=== PATIENT | male | born 1945 | race Native Hawaiian/Other Pacific Islander ===

== ENCOUNTER 2017-07-01 21:50 | Inpatient (IN) | payer OTHER ==
[~2017-07-01] VITALS: Ht 177.8 cm; Wt 86.7 kg
[2017-07-01] MEDS ORDERED: KP FOLIC ACID1 MG PO (22:02)
[2017-07-01] MEDS ORDERED: LORA1TAB17 PO (22:03)
[2017-07-01] MEDS ORDERED: ACID REDUCER150 MG PO (22:04)
[2017-07-01] MEDS ORDERED: APAP/TRAMADL1 TAB OR (22:04)
[2017-07-01] MEDS ORDERED: LAMOTRIGINE25 M1 OR (22:05)
[2017-07-01] MEDS ORDERED: RANO500T PO (22:09)
[2017-07-01] MEDS ORDERED: FLUOXETINE40 MG PO (22:09)
[2017-07-01] MEDS ORDERED: VITAMIN D35000 UNI1 OR (22:10)
[2017-07-01 22:11] VITALS: BP 170/76; TEMP 98.8
[2017-07-01] MEDS ORDERED: BENTYL10 MG PO (22:11)
[2017-07-01] MEDS ORDERED: CLOPIDOGREL75 MG PO (22:11)
[2017-07-01] MEDS ORDERED: LIPITOR40 MG PO (22:11)
[2017-07-01] MEDS ORDERED: TAMSULOSIN0.4 MG PO (22:13)
[2017-07-01] MEDS ORDERED: FINA5TAB2 PO (22:13)
[2017-07-01] MEDS ORDERED: CAPTOPRIL12.5 MG OR (22:13)
[2017-07-01] MEDS ORDERED: CARV12.5 PO (22:14)
[2017-07-01] MEDS ORDERED: FISH OIL1 C10 PO (22:18)
[2017-07-01] MEDS ORDERED: GNP LANSOPRAZOL15 MG OR (22:19)
[2017-07-01] MEDS ORDERED: EQ ASPIRIN325 MG OR (22:21)
[2017-07-01 23:11] LABS: PLATELET COUNT 195 K/uL (142-355)
[2017-07-01 23:26] LABS: POTASSIUM 3.1 mmol/L (3.6-5.2)
[2017-07-02] VITALS (7 sets, daily range): BP systolic 124–173; BP diastolic 50–84; TEMP 97.4–98.5; Ht 177.8 cm; Wt 86.7 kg
[2017-07-02 05:47] LABS: PARTIAL THROMBOPLASTIN TIME 26.5 SECONDS (24.5-33.6)
[2017-07-03] VITALS (10 sets, daily range): BP systolic 119–167; BP diastolic 57–77; TEMP 97.8–98.3
[2017-07-03 07:56] LABS: PLATELET COUNT 160 K/uL (142-355)
[2017-07-03 08:09] LABS: POTASSIUM 4.5 mmol/L (3.6-5.2)
== END 2017-07-03 17:17 | disposition short-term general hospital (02) | DRG 177 ==
LOC: ED 21:50 → MED/SURG 07-02 00:09 → ICU 07-02 00:09 → MED/SURG 07-02 00:09 → ICU 07-03 13:25 → MED/SURG 07-03 13:25 → ICU 07-03 17:17
PROVIDERS: Family Medicine
DX: J69.0 Pneumonitis due to inhalation of food and vomit (principal); I50.31 Acute diastolic (congestive) heart failure; R07.89 Other chest pain; E80.6 Other disorders of bilirubin metabolism; E87.6 Hypokalemia; R13.19 Other dysphagia; R00.1 Bradycardia, unspecified; R42 Dizziness and giddiness; Z86.73 Personal history of transient ischemic attack (TIA), and cerebral infarction without residual deficits; E11.9 Type 2 diabetes mellitus without complications
CPT/HCPCS: 36415; 36600; 80053; 81000; 82542; 82550; 82553; 82805; 82948; 83735; 83880; 84484; 85027; 85610; 85730; 87040; 93005; 94640; 94664; 94760; 96365; 96366; 96367; 96372; 96374; 96375; 99220; 99284; G0378; J1650; J1940; J1956; J2060; J2270; J2930; J3411; J7060